=== PATIENT | male | born 1985 | race Caucasian/White ===

== ENCOUNTER 2022-06-12 15:42 | Inpatient (IN) | payer OTHER ==
[~2022-06-12] VITALS: Ht 172.7 cm; Wt 136.1 kg
[2022-06-12 15:43] VITALS: BP 149/80
--- NOTE | 2022-06-12 16:00 | NUR ---
C/O SOB X1 WEEK, WORSE WITH EXERTION. PT WHEN AWAKE, SATTING AT 98% RA, WHEN STANDING DROPPED TO 88% RA, DESATS TO 88% WHEN SPEAKING. SPEAKING IN FULL SENTENCES. DENIES CP, DENIES COUGH. PMH: SLEEP APNEA
--- NOTE | 2022-06-12 16:58 | NUR ---
LAB AT BEDSIDE
[2022-06-12 17:04] LABS: BASOPHILS # (AUTO) 0.1 K/uL (0.00-0.22); BASOPHILS % (AUTO) 0.9 % (0.0-2.0); EOSINOPHILS # (AUTO) 0.2 K/uL (0-0.4); EOSINOPHILS % (AUTO) 1.8 % (0.0-4.0); HEMOGLOBIN 12.2 g/dL (12.0-18.0); LYMPHOCYTES % (AUTO) 7.6 % (20.5-51.1); MEAN CORPUSCULAR HEMOGLOBIN 26 pg (27-31); MEAN CORPUSCULAR HGB CONC 32 g/dL (33-37); MEAN CORPUSCULAR VOLUME 82.5 fL (80-94); MONOCYTES # (AUTO) 0.6 K/uL (0.8-1.0); MONOCYTES % (AUTO) 4.8 % (1.7-9.3); NEUTROPHILS # (AUTO) 10.9 K/uL (1.8-7.7); NEUTROPHILS % (AUTO) 84.9 % (42.2-75.2); PLATELET COUNT (AUTO) 323 K/uL (140-450); RED BLOOD CELL COUNT(AUTO) 4.61 MIL/uL (4.20-6.10); WHITE BLOOD COUNT (AUTO) 12.8 K/uL (4.8-10.8)
[2022-06-12] MEDS ORDERED: MAG SULF 2000 MG/WATER PREMIX 50 ML IV ONE (17:10)
--- NOTE | 2022-06-12 17:11 | NUR ---
XRAY AT BEDSIDE
[2022-06-12 17:29] LABS: ALBUMIN 2.4 g/dL (3.4-5.0); ANION GAP 12.7 (8-16); CARBON DIOXIDE 25.1 mmol/L (21-32); CREATININE 1.1 mg/dL (0.6-1.3); POTASSIUM 3.8 mmol/L (3.5-5.1); TOTAL BILIRUBIN 0.6 mg/dL (0.0-1.0)
[2022-06-12] MEDS ORDERED: FUROSEMIDE 40 MG/4 ML VIAL IVP ONE (18:00)
[2022-06-12] MEDS ORDERED: cefTRIAXone 1,000 MG VIAL ONE (18:04)
[2022-06-12] MEDS ORDERED: ASPIRIN 325 MG TAB PO ONE (18:05)
[2022-06-12] MEDS ORDERED: CALC500C17 PO (18:17)
[2022-06-12] MEDS ORDERED: MUC600 PO (18:17)
[2022-06-12] MEDS ORDERED: LORazepam 2 MG/ML VIAL IVP PRN (19:05)
[2022-06-12] MEDS ORDERED: MORPHINE SULFATE 2 MG/ML SYR IVP PRN (19:05)
[2022-06-12] MEDS ORDERED: ACETAMINOPHEN 325 MG TAB PO PRN (19:05)
[2022-06-12] MEDS ORDERED: ONDANSETRON 4 MG/2 ML VIAL IVP PRN (19:05)
--- NOTE | 2022-06-12 19:05 | NUR ---
Patient A/Ox4, resting comfortably, chest rise and fall symmetrical, no s/s of distress, no c/o pain.
[2022-06-12] MEDS ORDERED: CEPH-588 PO (19:09)
--- NOTE | 2022-06-12 19:25 | NUR ---
Pt report given to FRANK VILLANUEVA. Transfer of care at this time.
--- NOTE | 2022-06-12 20:00 | NUR ---
Patient A/Ox4, resting comfortably, chest rise and fall symmetrical, no s/s of distress, no c/o pain.
--- NOTE | 2022-06-12 22:00 | NUR ---
Patient A/Ox4, resting comfortably, chest rise and fall symmetrical, no s/s of distress, no c/o pain.
--- NOTE | 2022-06-12 23:05 | NUR ---
Patient A/Ox4, resting comfortably, chest rise and fall symmetrical, no s/s of distress, no c/o pain.
[2022-06-13 00:07] VITALS: BP 112/75
--- NOTE | 2022-06-13 00:10 | NUR ---
Patient A/Ox4, resting comfortably, chest rise and fall symmetrical, no s/s of distress, no c/o pain.
--- NOTE | 2022-06-13 01:22 | NUR ---
Patient will be admitted to care of Telemetry Nurse Nelsy VILLANUEVA. Admited to Telemetry. Will go to room 119A. Belongings list completed. Report to Telemetry Nurse Nelsy VILLANUEVA. Telemetry Nurse Nelsy VILLANUEVA verbalized understanding of report, no further questions. Patient safely transferred to bed, patient A/Ox4, chest rise and fall symmetrical, patient on CPAP, no c/o pain or s/s of distress. Addendum: 06/13/22 at 0202 by [id number] Patient will be admitted to care of Telemetry Nurse Nelsy VILLANUEVA. Admited to Telemetry. Will go to room 124b. Belongings list completed. Report to Telemetry Nurse Nelsy VILLANUEVA. Telemetry Nurse Nelsy VILLANUEVA verbalized understanding of report, no further questions. Patient safely transferred to bed, patient A/Ox4, chest rise and fall symmetrical, patient on CPAP, no c/o pain or s/s of distress.
--- NOTE | 2022-06-13 01:40 | NUR ---
RECEIVED PT ADMISSION FROM ER. ADMITTED THIS 36 YEARS OLD MALE, CAME IN TO [facility] UNIT VIA [facility] WITH DIAGNOSIS OF NSTEMI, PULMONARY EDEMA, NEW ONSET CHF, RESPIRATORY FAILURE. PT IS AWAKE , ALERT AND VERBALLY RESPONSIVE. PT CAME IN WITH BIPAP AND ESCORTED BY RT. PT IS NOTED WITH SHORT OF BREATH. PT ABLE TO TRANSFERRED TO OWN BED FROM [facility] INDEPENDENTLY. PT HAS STEADY GAIT. PT IS WITH HISTORY OF SLEEP APNEA. SALINE LOCK ON LEFT AC INTACT AND PATENT. MRSA NARES TAKEN AND PT ABLE TO TOLERATES FEW SECOND WITHOUT BIPAP. SKIN INTACT, NO SKIN PROBLEM. CONTINUE MONITORING.
--- NOTE | 2022-06-13 02:06 | NUR ---
PT TRANSPORTED FROM ED TO 124 ON BIPAP WITH NO ADVERSE EVENTS PT TOLERATED TRANSPORT WELL. BIPAP PUGGED INTO RED OUTLET WITH ALARMS AUDIBLE. PT AMBULATED FROM ER BED TO TELE BED BY HIMSELF. PER PT REQUEST NIV WAS PLACED ON STANDBY AND PLACED ON 3L NC AND TOLERATING WELL AT THIS TIME. SPO2 95% TEN MINUTE POST NC PLACEMENT. PT WAS EDUCATED ON BRENDAN AND BENEFITS ON NIV. PT IS AWARE HE NEEDS TO WEAR WHEN SLEEPING AND FOR SOB.
--- NOTE | 2022-06-13 02:54 | NUR ---
CHECKED ON PATIENT. PATIENT STILL OFF BIPAP. PATIENT IS AWAKE.PT WILL CALL WHEN READY TO WEAR BIPAP
[2022-06-13 04:00] VITALS: BP 98/71
--- NOTE | 2022-06-13 04:15 | NUR ---
0400 PLACED PATIENT BACK ON BIPAP. PATIENT WANTS TO SLEEP. IPAP 14 EPAP 6 RR 16 FIO2 30%
--- NOTE | 2022-06-13 04:20 | NUR ---
PT UNABLE TO SLEEP, PT REQUESTED TO SLEEP ON THE FLOOR WHAT HE USUALLY DOES AT HOME, HE CAN BREATH BETTER AND SOB REDUCED. EXPLAINED TO PATIENT THE RISKS/BENEFITS. PT STATED HE COULD NOT BREATH WHEN SLEEP ON THE BED, BED IS TOO SOFT. PT CHOSE TO SIT AND SLEEP ON THE CHAIR.
--- NOTE | 2022-06-13 04:30 | NUR ---
PT REQUESTED TO SLEEP ON THE FLOOR.
--- NOTE | 2022-06-13 04:35 | NUR ---
PT STATED HE PREFER TO SLEEP ON THE HARD SURFACE, NOT BED. PT AGREE TO SLEEP ON SOFA WITH A FIRM SURFACE. PT VERBALIZED FEELS COMFORTABLE.
[2022-06-13 05:43] LABS: BASOPHILS # (AUTO) 0.1 K/uL (0.00-0.22); BASOPHILS % (AUTO) 0.5 % (0.0-2.0); EOSINOPHILS # (AUTO) 0.1 K/uL (0-0.4); EOSINOPHILS % (AUTO) 0.9 % (0.0-4.0); HEMATOCRIT 38.9 % (36-52); HEMOGLOBIN 12.5 g/dL (12.0-18.0); LYMPHOCYTES # (AUTO) 1.5 K/uL (2.0-11.5); LYMPHOCYTES % (AUTO) 10.4 % (20.5-51.1); MEAN CORPUSCULAR HEMOGLOBIN 27 pg (27-31); MEAN CORPUSCULAR HGB CONC 32 g/dL (33-37); MEAN CORPUSCULAR VOLUME 83.3 fL (80-94); MONOCYTES # (AUTO) 1.2 K/uL (0.8-1.0); MONOCYTES % (AUTO) 8.4 % (1.7-9.3); NEUTROPHILS # (AUTO) 11.3 K/uL (1.8-7.7); NEUTROPHILS % (AUTO) 79.8 % (42.2-75.2); PLATELET COUNT (AUTO) 352 K/uL (140-450); RED BLOOD CELL COUNT(AUTO) 4.67 MIL/uL (4.20-6.10); RED CELL DISTRIBUTION WIDTH 17.4 % (11.6-13.7); WHITE BLOOD COUNT (AUTO) 14.2 K/uL (4.8-10.8)
[2022-06-13 06:01] LABS: ANION GAP 14.3 (8-16); CARBON DIOXIDE 25.6 mmol/L (21-32); CREATININE 1.3 mg/dL (0.6-1.3); POTASSIUM 4.9 mmol/L (3.5-5.1)
--- NOTE | 2022-06-13 07:45 | NUR ---
PT IS ASLEEP WITH BIPAP. ENDORSED TO DAY SHIFT NURSE FOR CONTINUITY OF CARE. PT IS STABLE. ALL SAFETY MEASURERS IN PLACE.
[2022-06-13 08:00] VITALS: BP 99/72
[2022-06-13] MEDS: FUROSEMIDE 40 MG/4 ML VIAL IVP SCH ×2 (08:58→20:46)
--- NOTE | 2022-06-13 09:05 | NUR ---
1835 RT CALLED TO PT ROOM TO SEE ABOUT OXYGEN. NO RN IN ROOM BUT PT STATED HE WANTED TO GO ON NASAL CANNULA SO HE CAN MAKE A CALL. PT WAS TAKING OFF BIPAP AND PLACED ON 3L NC. HR 82 SPO2 98%
--- NOTE | 2022-06-13 11:00 | NUR ---
PATIENT HAS BEEN SCREENED AND CATEGORIZED MODERATE NUTRITION RISK. PATIENT WILL BE SEEN WITHIN 3-5 DAYS OF ADMISSION. 06/12/22-06/17/[address] REFERRAL RECEIVED ON [facility]NS REFERRAL REPORT:MODERATE RISK.
--- NOTE | 2022-06-13 11:35 | NUR ---
DC PLANNING SW MET WITH PT AND PT'S SISTER JORGE, AT BEDSIDE TO COMPLETE ASSESSMENT. PATIENT REPORTS RESIDING AT HOME WITH HIS SISTER IN A SINGLE STORY HOME, AT THE ADDRESS LISTED ON FILE. PATIENT IDENTIFIED CARA MATTHEW, SISTER, EMERGENCY CONTACT AND MDM. PATIENT DENIED AD IN PLACE AND ACCEPTED AD OFFERED BY SW. PATIENT REPORTS MEETING WITH PCP, , NEEDED, LAST VISIT; 6 MONTHS AGO. PATIENT REPORTS HAVING A REFERRAL TO A [facility], HOWEVER REPORTS THAT HE DID NOT F/U. PATIENT REPORTS PARTICIPATING IN SLEEP STUDY 2 YRS AGO, HOWEVER, SLEEP STUDY FACILITY REPORTED THAT STUDY HAD NOT BEEN PROPERLY RECORDED. PATIENT REPORTS THAT HE DID NOT F/U AGAIN. SW SPOKE TO PATIENT ABOUT F/U CARE WITH PCP, PATIENT WAS RECEPTIVE AND PROVIDED SW WITH PERMISSION TO SCHEDULE F/UP APPT. PATIENT DENIES TAKING MEDICATION AND DENIED BARRIERS IN ACCESS TO MEDIATION, IF REQUIRED. PATIENT REPORTS PICKING UP MEDICATION FROM [facility] ON [address] IN [place], WHEN NEEDED. PATIENT IS REPORTS BEING AMBULATORY AND COMPLETES ADL'S INDEPENDENTLY. PATIENT DENIES MH/SA HX. 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 PATIENT REPORTS THAT HE WILL REAPPLY. PATIENT HAS INFORMATION NEEDED TO REAPPLY. PATIENT REPORTS DC PLAN IS TO RETURN HOME WHEN CLINICALLY STABLE WITH SISTER PROVIDING TRANSPORTATION AND AIDING CARE, IF REQUIRED. SW INQUIRED ON ADDITIONAL RESOURCES NEEDED, PATIENT DECLINED. Addendum: 06/15/22 at 1502 by Pippa Arthur SW OUTREACHED TO PATIENT PCP OFFICE [phone] TO SCHEDULE F/U APPT. SPOKE WITH MAI, MEAT PRESS OPERATOR, WHO REPORTS THAT OFFICE WOULD BE IN CONTACT WITH PATIENT TO SCHEDULE F/U. ISI SPOKE TO PATIENT AT BEDSIDE TO NOTIFY HIM THAT PCP OFFICE WOULD BE CONTACTING TO SCHEDULE F/U. PATIENT IN UNDERSTANDING
[2022-06-13 12:00] VITALS: BP 100/77
--- NOTE | 2022-06-13 15:12 | NUR ---
06/13/2022 RD INITIAL ASSESSMENT COMPLETED. PLEASE REFER TO NUTRITION ASSESSMENT UNDER CARE ACTIVITY FOR ESTIMATED NUTRITIONAL NEEDS. 1.CONTINUE WITH CARDIAC DIET 2.MONITOR PO INTAKE AND WEIGHT 3.RD TO FOLLOW-UP IN 3-5 DAYS PATIENT IS MODERATE RISK. ANABEL WEINBERG, RD
--- NOTE | 2022-06-13 15:47 | NUR ---
DC PLANNIN YRS OLD MALE PATIENT WAS ADMITTED FROM HOME WITH A DX OF CHF OBSTRUCTIVE SLEEP APNEA . PATIENT HAS A HX OF MORBID OBESITY, SLEEP APNEA. CXR SHOWED CARDIOMEGALY AND PULMONARY CONGESTION. RAPID COVID TEST NEGATIVE. ADMINISTERED IV LASIX AND IV ABX ROCEPHIN. CONSULTED WITH PULMO AND CARDIO. DC PLAN TO GO HOME WHEN STABLE CM TO FOLLOW Addendum: 06/14/22 at 1333 by Katie Oates RN DC PLANNING: CM MET PATIENT AND HIS SISTER AT THE BED SIDE. PT'S SISTER REQUESTED PATIENT TO BE TRANSFERRED TO [facility]. CM EXPLAINED THE PROCESS HOW AND WHEN TO TRANSFER PATIENT. BOTH AGREED AND AWAITING FOR MD. LAKIA NOTIFIED ADMITTING DR SIMS PATIENT IS ALERT AND ORIENTED X 4 O2 2L/NC NO S/S OF RESP DISTRESS NOTED. AWAITING FOR DR SIMS TO SEE PATIENT. CM TO FOLLOW Addendum: 06/15/22 at 1646 by Katie Oates RN DC PLANNING: RECEIVED A CALL FROM [facility] STATED THEY WILL DELIVERY THE HOME O2 TO THE HOUSE AND PT'S SISTER WILL BRING THE PORTABLE O2 TO THE HOSPITAL. NOTIFIED MARVIN CHARGE NURSE. PATIENT WILL BE DISCHARGED WHEN THEY BRING THE PORTABLE OXYGEN. CM TO FOLLOW
[2022-06-13 16:00] VITALS: BP 92/66
--- NOTE | 2022-06-13 18:21 | NUR ---
ALL NEEDS ANTICIPATED AND MET PT SISTER REQUESTING PT TO BE TRANSFERRED SECONDARY TO HER FRIEND WAS DIAGNOSED WITH CHF AND SHE FEELS PT NEEDS HIGHER LOEVEL OF CARE PT APPROPRIATE AT THIS TIME MD SPOKE WITH PT AND PT FAMILY AT BEDSIDE PT ENDORSES HE FEELS BTTER TODAY THAN YESTERDAY PLAN OF CARE REVIEWED AND PT AWARE OF LASIX AND VERBALIZES UNDERSTANDING OF WHY HE IS RECEIVING LASIX O2 AT 3LNC O2 SAT WNL BREATHING EVEN AT THIS TIME AND NON LABORED P;T IN ROOM WITH FAMILY TALKING AND LAUGHING AT BEDSIDE DENIES P;AIN
--- NOTE | 2022-06-13 19:15 | NUR ---
REPORT RECEIVED FROM DAY SHIFT RN. CARE TAKEN OVER. PT IS AWAKE, UP IN CHAIR ON NC 3LITERS CURRENTLY, NO DISTRESS NOTED. PATIENT DENIES PAIN. CALL LIGHT WITHIN REACH. ENCOURAGED PT TO USE CALL LIGHT TO REACH RN FOR HIS NEEDS.
[2022-06-13 21:21] VITALS: BP 113/70
--- NOTE | 2022-06-13 21:21 | NUR ---
PT ASKED TO BE PLACED ON BIPAP AT THIS TIME. RESPIRONICS V60 IS PLUGGED INTO RED OUTLET, ALARMS ARE ON AND AUDIBLE, PT IS TOLERATING LARGE FULL FACE MASK WELL, NO SIGNS OF RESPIRATORY DISTRESS NOTED.
[2022-06-13 23:26] LABS: BARBITURATE, URINE NEGATIVE ng/ml (NEG <=200); BENZODIAZEPINE, URINE NEGATIVE ng/mL (NEG <=200); CANNABINOID, URINE NEGATIVE ng/mL (NEG <=50); COCAINE, URINE POSITIVE ng/mL (NEG <=300); OPIATE, URINE NEGATIVE ng/mL (NEG <=2000); PHENCYCLIDINE SCREEN,URINE NEGATIVE ng/mL (NEG <=25)
[2022-06-14] VITALS: BP 97/61
[2022-06-14 04:00] VITALS: BP 99/63
[2022-06-14 06:08] LABS: ANION GAP 13.3 (8-16); CARBON DIOXIDE 28.4 mmol/L (21-32); CREATININE 1.1 mg/dL (0.6-1.3); POTASSIUM 3.7 mmol/L (3.5-5.1)
[2022-06-14 06:18] LABS: CHOL/HDL RATIO 5.2 (1-4.5)
--- NOTE | 2022-06-14 07:34 | NUR ---
PT STABLE. NO ACUTE S/SX OF DISTRESS AT THIS MOMENT. ALL NEEDS MET. ALL PRECAUTIONS IN PLACE.CALL LIGHT WITHIN REACH.WILL ENDORSE TO AM SHIFT NURSE.
[2022-06-14 08:00] VITALS: BP 123/74
--- NOTE | 2022-06-14 08:00 | NUR ---
RECEIVE ENDORSEMENT FROM PM SHIFT NURSE THAT PATIENT SITTING ON CHAIR WITH 2 LITER VIA NC. PIV LAC 18G SALINE LOCK. PATIENT HERE FOR CHF EXACERBATION ON LASIX. WILL CONTINUE TO MONITOR
[2022-06-14] MEDS: FUROSEMIDE 40 MG/4 ML VIAL IVP SCH ×3 (08:47→22:10)
[2022-06-14 12:00] VITALS: BP 124/74
[2022-06-14 16:00] VITALS: BP 114/77
--- NOTE | 2022-06-14 19:41 | NUR ---
ENDORSE PATIENT TO PM SHIFT NURSE THAT PATIENT SITTING ON CHAIR WITH 2 LITER VIA NC. PIV LAC 18G SALINE LOCK. PATIENT HERE FOR CHF EXACERBATION ON LASIX, WAITING FOR TRANSFER TO OTHER HOSPITAL FOR MORE TEST.
[2022-06-14 20:00] VITALS: BP 117/70
--- NOTE | 2022-06-14 22:00 | NUR ---
BP 115/69 , HR 100 - NO S/SX OF ACUTE DISTRESS NOTED , O2 SAT 98 % - WILL GIVE SCHED . LASIX TIV - WILL CONT. TO MONITOR , URINAL / CALL LIGHT WITHIN REACH , ON TELE MONITOR .
[2022-06-15] VITALS: BP 113/66
--- NOTE | 2022-06-15 | NUR ---
NO S/SX OF ACUTE DISTRESS NOTED , WILL CONT. TO MONITOR .
[2022-06-15 04:00] VITALS: BP 117/72
--- NOTE | 2022-06-15 04:00 | NUR ---
NO COMPLAIN MADE , O2 SAT WNL .
[2022-06-15 05:48] LABS: ANION GAP 10.7 (8-16); CARBON DIOXIDE 34.7 mmol/L (21-32); CREATININE 1.1 mg/dL (0.6-1.3); POTASSIUM 3.4 mmol/L (3.5-5.1)
--- NOTE | 2022-06-15 06:00 | NUR ---
BP 118 / 70 , HR 100 , NO S/SX OF ACUTE DISTRESS NOTED .
[2022-06-15] MEDS: FUROSEMIDE 40 MG/4 ML VIAL IVP SCH ×2 (06:55→12:31)
[2022-06-15] MEDS ORDERED: POTASSIUM CHLORIDE 10 MEQ TABER PO ONE ×2 (07:45→12:45)
--- NOTE | 2022-06-15 07:45 | NUR ---
ENDORSED - PT - STABLE .
[2022-06-15 08:00] VITALS: BP 121/80
[2022-06-15] MEDS: POTASSIUM CHLORIDE 10 MEQ TABER PO SCH ×2 (08:55→12:31)
[2022-06-15 12:00] VITALS: BP 120/78
--- NOTE | 2022-06-15 14:45 | NUR ---
REQUEST FOR SERVICE FOR HOME O2 EVALUATION. PT SATURATION REMAINED BETWEEN 95% AND 98% FOR 20 MIN ON ROOM AIR. PT WALKED TO THE BATHROOM AND CAME BACK, SAT DOWN AND SATURATION STAYED ABOVE 95%. PT STATED HIS CONCERN WAS WHEN HE GOES TO SLEEP AND HOW HE WAKES UP ABRUPTLY FROM POSSIBLE OBSTRUCTIVE SLEEP APNEA. I WOULD SUGGEST A SLEEP STUDY FOR THE PT AND POSSIBLE HOME CPAP.
[2022-06-15] MEDS ORDERED: FURO-570 PO (14:46)
[2022-06-15] MEDS ORDERED: ASPI-1822 PO (14:46)
--- NOTE | 2022-06-15 14:50 | NUR ---
patient up in the chair resting. oxygen saturation on room air for thirty minutes is 83 %.
[2022-06-15 14:56] VITALS: BP 120/78
[2022-06-15 16:00] VITALS: BP 120/72
--- NOTE | 2022-06-15 18:08 | NUR ---
patient discharged home at this time in the company of family member.instructions given.both verbalized understanding.
== END 2022-06-15 18:15 | disposition home or self-care (01) | DRG 194 ==
LOC: MED 15:42 → MTU 19:08
PROVIDERS: ADMIT Hospitalist; ATTEND Hospitalist
PROC: 5A09357 Assistance with Respiratory Ventilation, Less than 24 Consecutive Hours, Continuous Positive Airway Pressure (ICD-10-PCS; principal; 2022-06-13)
DX: I50.23 Acute on chronic systolic (congestive) heart failure (principal); J96.01 Acute respiratory failure with hypoxia; E44.0 Moderate protein-calorie malnutrition; R65.10 Systemic inflammatory response syndrome (SIRS) of non-infectious origin without acute organ dysfunction; I42.0 Dilated cardiomyopathy; G47.33 Obstructive sleep apnea (adult) (pediatric); E66.01 Morbid (severe) obesity due to excess calories; F14.10 Cocaine abuse, uncomplicated; Z20.822 Contact with and (suspected) exposure to COVID-19; Z68.42 Body mass index [BMI] 45.0-49.9, adult; F10.10 Alcohol abuse, uncomplicated
CPT/HCPCS: 36415; 71045; 80048; 80053; 80305; 83036; 83735; 83880; 84484; 85025; 87040; 87081; 93005; 94660; 96365; 96366; 96367; 96375; 99291; J0696; J1940; J3475; Q0092